=== PATIENT | female | born 1970 | race Hispanic/Latino ===

== ENCOUNTER 2017-07-02 02:04 | Inpatient (IN) | payer MEDICAID ==
[2017-07-02] MEDS ORDERED: Sodium Chloride 0.9% 1,000 ML IV STA (03:19)
--- NOTE | 2017-07-02 03:26 | ED PDOC ---
HPI: Abdomen Time Seen by Provider: 07/02/17 02:47 Chief Complaint (Nursing): Abdominal Pain Chief Complaint (Provider): Abdominal Pain History Per: Patient History/Exam Limitations: no limitations Onset/Duration Of Symptoms: Days (x 2) Current Symptoms Are (Timing): Still Present Additional Complaint(s): Shabnam is a 46 y/o female with a history of anxiety and depression who presents to the ED complaining of left-sided abdominal pain that started about 36 hours ago and got progressively worse. Patient states she now has an associated fever that was 100.6 at home for which she has not taken any medications. She also complains of decreased appetite, chills, and nausea, but denies vomiting. She has had loose stool but that is not abnormal for her. PMD: Clinic Past Medical History Reviewed: Historical Data, Nursing Documentation, Vital Signs Vital Signs: Last Vital Signs Temp 100.3 F H 07/02/17 05:15 Pulse 97 H 07/02/17 05:15 Resp 16 07/02/17 05:15 BP 114/66 07/02/17 05:15 Pulse Ox 98 07/02/17 06:03 - Medical History PMH: Anxiety, Depression Denies: Chronic Kidney Disease - Surgical History Other surgeries: removal of fallopian tubes and ovaries - Family History Family History: States: Unknown Family Hx - Social History Current smoker - smoking cessation education provided: No Alcohol: None Drugs: Denies - Home Medications Home Medications: Ambulatory Orders Medication Instructions Recorded Escitalopram [Lexapro] 20 mg PO DAILY 07/02/17 Estrogen,Con/M-Progest Acet 0.3 - 1.5 mg PO ONCE 07/02/17 [Prempro 0.3 mg-1.5 mg Tablet] - Allergies Allergies/Adverse Reactions: Allergies Allergy/AdvReac Type Severity Reaction Status Date / Time clindamycin Allergy RASH Verified 05/09/16 18:11 vancomycin Allergy RASH Verified 05/09/16 18:11 Review of Systems ROS Statement: Except As Marked, All Systems Reviewed And Found Negative Constitutional: Positive for: Fever, Chills, Other (decreased appetite) Gastrointestinal: Positive for: Nausea, Abdominal Pain (left-sided). Negative for: Vomiting Physical Exam - Reviewed Nursing Documentation Reviewed: Yes Vital Signs Reviewed: Yes - Physical Exam Appears: Positive for: Well, Non-toxic, No Acute Distress Cardiovascular/Chest: Positive for: Regular Rate, Rhythm. Negative for: Murmur Respiratory: Positive for: Normal Breath Sounds. Negative for: Respiratory Distress Gastrointestinal/Abdominal: Positive for: Soft, Tenderness (marked LLQ), Guarding Extremity: Positive for: Normal ROM. Negative for: Pedal Edema, Deformity Neurologic/Psych: Positive for: Alert, Oriented. Negative for: Motor/Sensory Deficits - Laboratory Results Result Diagrams: 07/02/17 04:00 07/02/17 04:00 - ECG O2 Sat by Pulse Oximetry: 98 (RA) Medical Decision Making Medical Decision Making: Time: 3:12 Initial Impression: 46 y/o female with LLQ tenderness Initial Plan: --CT Abdomen & Pelvis IV Contrast --CMP --Lactic Acid --Lipase --CBC --Blood Culture --Urinalysis --Toradol Time: 5:45 CT ABDOMEN & PELVIS FINDINGS: LOWER THORAX: No infiltrate seen in the lung bases. ABDOMEN: LIVER: No acute abnormality of the liver identified. GALLBLADDER AND BILE DUCTS: No CT evidence of acute cholecystitis. No evidence of significant biliary ductal dilatation. PANCREAS: No CT evidence of acute pancreatitis. SPLEEN: No acute abnormality of the spleen identified. ADRENALS: No acute abnormality of the adrenal glands identified. KIDNEYS AND URETERS: No acute abnormality of the kidneys identified. No evidence of significant hydrouereteronephrosis. STOMACH AND BOWEL: Moderate fat stranding and infiltration, consistent with inflammatory change, is seen in the fat adjacent to the distal descending colon. Segmental wall thickening of the colon is also noted in this same area. There is thickening of the nearby left retroperitoneal fascia The inflammatory changes surround a colonic diverticulum, image 117/series 3. Findings are most compatible with acute diverticulitis. No evidence of significant focal fluid collection or abscess. No definite nearby extraluminal air seen to suggest perforation. Otherwise, no significant abnormality of the bowel is identified. No evidence of bowel obstruction. APPENDIX: Appendix is seen, and is within normal limits in appearance. PELVIS: BLADDER: No acute abnormality of the bladder identified. REPRODUCTIVE:No acute abnormality of the reproductive organs is seen. No acute abnormality of the uterus identified. No evidence of large adnexal masses. ABDOMEN and PELVIS: INTRAPERITONEAL SPACE: Tiny amount of pelvic free fluid. No evidence of free air. BONES/JOINTS: Bony structures appear demineralized. No acute fractures or other acute bony abnormality noted. SOFT TISSUES: No acute abnormality of the visualized soft tissues is seen. VASCULATURE: No evidence of abdominal aortic aneurysm. No evidence of periaortic hemorrhage. LYMPH NODES: No evidence of diffuse lymphadenopathy. IMPRESSION: - Findings compatible with acute diverticulitis of the distal descending colon. No evidence of abscess formation or perforation. - See above for remaining findings. --Provider spoke to Dr. Moreno, family practice resident cardiopulmonary supervisor, who will admit patient for acute diverticulitis. --IV Cipro and Flagyl ordered. Clinical Impression: Acute Diverticulitis Scribe Attestation: Documented by Kenroy Hilton, acting as a scribe for Kel Barrera MD Provider Scribe Attestation: All medical record entries made by the Scribe were at my direction and personally dictated by me. I have reviewed the chart and agree that the record accurately reflects my personal performance of the history, physical exam, medical decision making, and the department course for this patient. I have also personally directed, reviewed, and agree with the discharge instructions and disposition. Disposition - Clinical Impression Clinical Impression: Acute diverticulitis - Patient ED Disposition Is Patient to be Admitted: Yes Discussed With DrCinthya: Lester Moreno Doctor Will See Patient In The: ED Counseled Patient/Family Regarding: Studies Performed, Diagnosis - Disposition Disposition Time: 06:00 Condition: FAIR - Pt Status Changed To: Hospital Disposition Of: Inpatient - Admit Certification Admit to Inpatient:: After my assessment, the patient will require hospitalization for at least two midnights. This is because of the severity of symptoms shown, intensity of services needed, and/or the medical risk in this patient being treated as an outpatient.
[2017-07-02 03:51] LABS: SQUAMOUS EPITHIAL 7 /hpf (0-5); URINE BACTERIA MOD (<OCC); URINE BILIRUBIN NEGATIVE (NEGATIVE); URINE BLOOD NEGATIVE (NEGATIVE); URINE CLARITY CLOUDY (Clear); URINE COLOR YELLOW (YELLOW); URINE GLUCOSE (UA) NEG (Normal); URINE LEUKOCYTE ESTERASE NEG Leu/uL (Negative); URINE NITRATE NEGATIVE (NEGATIVE); URINE PROTEIN 30 mg/dL (NEGATIVE); URINE UROBILINOGEN 0.2-1.0 mg/dL (0.2-1.0)
[2017-07-02 04:14] LABS: BASO # 0.1 K/uL (0.0-0.2); BASO % 0.4 % (0.0-2.0); EOS # 0.1 K/uL (0.0-0.7); EOS % 0.6 % (0.0-4.0); HEMOGLOBIN 12.2 g/dL (12.0-16.0); LYMPH # 1.8 K/uL (1.0-4.3); LYMPH % 13.6 % (20.0-40.0); MEAN CELL VOLUME 92.1 fl (81.0-99.0); MEAN CORPUSCULAR HEMOGLOBIN 31.6 pg (27.0-31.0); MEAN CORPUSCULAR HGB CONC 34.3 g/dL (33.0-37.0); MEAN PLATELET VOLUME 7.5 fl (7.2-11.7); MONO # 0.9 K/uL (0.0-0.8); MONO % 6.7 % (0.0-10.0); NEUT # 10.3 K/uL (1.8-7.0); NEUT % 78.7 % (50.0-75.0); RBC 3.87 Mil/uL (3.80-5.20); WHITE BLOOD COUNT 13.2 K/uL (4.8-10.8)
[2017-07-02 04:23] LABS: ALB/GLOB RATIO 1.2 (1.0-2.1); ALBUMIN 4.1 g/dL (3.5-5.0); ALT/SGPT 26 U/L (9-52); AST/SGOT 20 U/L (14-36); BLOOD UREA NITROGEN 13 mg/dl (7-17); CALCIUM 9.1 mg/dL (8.4-10.2); GFR AFRICAN-AMERICAN > 60; GFR NON-AFRICAN AMERICAN > 60; LIPASE 115 U/L (23-300)
[2017-07-02] MEDS ORDERED: Iohexol 300 100 ML IJ ONE (04:29)
[2017-07-02] MEDS ORDERED: Sodium Chloride 0.9% 100 ML ONE (04:29)
--- NOTE | 2017-07-02 05:45 | CT ---
EXAM: CT Abdomen and Pelvis With Intravenous Contrast EXAM DATE/TIME: 07/02/2017 3:12 AM CLINICAL HISTORY: 46 years old, female; Pain; Abdominal pain; Localized; Left lower quadrant (llq); Additional info: Llq pain TECHNIQUE: Axial computed tomography images of the abdomen and pelvis with intravenous contrast. All CT scans at this facility use one or more dose reduction techniques, viz.: automated exposure control; ma/kV adjustment per patient size (including targeted exams where dose is matched to indication; i.e. head); or iterative reconstruction technique. Coronal and sagittal reformatted images were created and reviewed. CONTRAST: 95 mL of omnipaque administered intravenously. COMPARISON: No relevant prior studies available. FINDINGS: LOWER THORAX: No infiltrate seen in the lung bases. ABDOMEN: LIVER: No acute abnormality of the liver identified. GALLBLADDER AND BILE DUCTS: No CT evidence of acute cholecystitis. No evidence of significant biliary ductal dilatation. PANCREAS: No CT evidence of acute pancreatitis. SPLEEN: No acute abnormality of the spleen identified. ADRENALS: No acute abnormality of the adrenal glands identified. KIDNEYS AND URETERS: No acute abnormality of the kidneys identified. No evidence of significant hydrouereteronephrosis. STOMACH AND BOWEL: Moderate fat stranding and infiltration, consistent with inflammatory change, is seen in the fat adjacent to the distal descending colon. Segmental wall thickening of the colon is also noted in this same area. There is thickening of the nearby left retroperitoneal fascia The inflammatory changes surround a colonic diverticulum, image 117/series 3. Findings are most compatible with acute diverticulitis. No evidence of significant focal fluid collection or abscess. No definite nearby extraluminal air seen to suggest perforation. Otherwise, no significant abnormality of the bowel is identified. No evidence of bowel obstruction. APPENDIX: Appendix is seen, and is within normal limits in appearance. PELVIS: BLADDER: No acute abnormality of the bladder identified. REPRODUCTIVE:No acute abnormality of the reproductive organs is seen. No acute abnormality of the uterus identified. No evidence of large adnexal masses. ABDOMEN and PELVIS: INTRAPERITONEAL SPACE: Tiny amount of pelvic free fluid. No evidence of free air. BONES/JOINTS: Bony structures appear demineralized. No acute fractures or other acute bony abnormality noted. SOFT TISSUES: No acute abnormality of the visualized soft tissues is seen. VASCULATURE: No evidence of abdominal aortic aneurysm. No evidence of periaortic hemorrhage. LYMPH NODES: No evidence of diffuse lymphadenopathy. IMPRESSION: - Findings compatible with acute diverticulitis of the distal descending colon. No evidence of abscess formation or perforation. - See above for remaining findings.
[2017-07-02] MEDS ORDERED: metroNIDAZOLE 500mg/100ml NS 100 ML IVPB STA (05:53)
[2017-07-02] MEDS ORDERED: Ciprofloxacin 400mg/200ml D5W 400 MG/200 ML BAG IV STA (05:53)
[2017-07-02] MEDS ORDERED: metroNIDAZOLE 500mg/100ml NS 100 ML IVPB ONE (06:02)
--- NOTE | 2017-07-02 06:55 | CP.PCM.HP ---
History of Present Illness - History of Present Illness History of Present Illness: CC: abdominal pain HPI: The patient is a 46 y/o woman w/ pmh of anxiety and depression presents to the ED with abdominal pain. The patient reports pain on the left lower quadrant that started 2 days ago (06/30), occurred at rest, not related to meals , stabbing in nature, non-radiating, constant, worsened w/ movement, alleviated by laying down. The patient reports regular bowel movements; however did not have bowel movement for 2 days prior to pain. Patient reports soft, non-bloody bowel movement yesterday. The patient took motrin for headache but did not have relief for abdominal pain. Patient reports low grade fever of 100.6 F measured at home. The patient currently denies headache, dizziness, chest pain , SOB, nausea, vomiting, dysuria, diarrhea, hematochezia, or melena. PMD: [facility] (last saw Dr. Gaytan 04/11/2017) PMH: anxiety, depression allergies: clindamycin, vancomycin meds: escitalopram 20 mg PO daily, prempro 0.625-2.5 mg PO daily PSH: ear surgery @ 10 years old, bilateral salpingo-oophorectomy 2015 Fam: mother 77 y/o and father 80 y/o both healthy SOC: denies smoking, alcohol, and illegal drugs ROS: 12 points assessed and negative unless otherwise reported in HPI ED course: vitals: 100.3 F, 97 beats/min, 114/66 mm Hg, resp 16, O2 98% RA CBC: 13.2>12.2/35.7<362 CMP: 141/3.8, 103/24, 13/0.8, glucose 109, AST 20, ALT 26, alk phos 80 Lactic Acid: 1.3 Lipase: 115 Blood Culture: pending Urinalysis: cloudy, protein 30, trace ketones, negative blood, glucose, nitrate , bilirubin, and leukocyte esterase CT Abdomen & Pelvis IV Contrast: Findings compatible with acute diverticulitis of the distal descending colon. No evidence of abscess formation or perforation given Toradol 15 mg IV once given ciprofloxacin 400 mg IV given metronidazole 500 mg IV IVF NS 1L bolus Present on Admission - Present on Admission Any Indicators Present on Admission: No History of DVT/PE: No History of Uncontrolled Diabetes: No Urinary Catheter: No Decubitus Ulcer Present: No Review of Systems - Review of Systems All systems: reviewed and no additional remarkable complaints except - Constitutional Constitutional: As Per HPI, Fever. absent: Chills - EENT Eyes: absent: Change in Vision - Cardiovascular Cardiovascular: absent: Chest Pain, Leg Edema, Lightheadedness, Palpitations - Respiratory Respiratory: absent: Dyspnea - Gastrointestinal Gastrointestinal: As Per HPI, Abdominal Pain. absent: Diarrhea, Hematochezia, Melena, Nausea, Vomiting - Genitourinary Genitourinary: absent: Dysuria - Reproductive: Female Reproductive:Female: Menopausal - Menstruation Menstruation: Menopausal - Integumentary Integumentary: absent: Rash Past Patient History - Past Medical History & Family History Past Medical History?: Yes - Past Social History Alcohol: None Drugs: Denies - CARDIAC Hx Cardiac Disorders: No - PULMONARY Hx Respiratory Disorders: No - NEUROLOGICAL Hx Neurological Disorder: No - HEENT Hx HEENT Problems: Yes (Hx of dental caries, tooth infection) - RENAL Hx Chronic Kidney Disease: No - ENDOCRINE/METABOLIC Hx Endocrine Disorders: No - HEMATOLOGICAL/ONCOLOGICAL Hx Blood Disorders: No - INTEGUMENTARY Hx Dermatological Problems: No - MUSCULOSKELETAL/RHEUMATOLOGICAL Hx Musculoskeletal Disorders: No Hx Falls: No - GASTROINTESTINAL Hx Gastrointestinal Disorders: No - GENITOURINARY/GYNECOLOGICAL Hx Genitourinary Disorders: No - PSYCHIATRIC Hx Anxiety: Yes Hx Depression: Yes - SURGICAL HISTORY Hx Surgeries: Yes Other/Comment: Left ear surgery. tooth extraction - ANESTHESIA Hx Anesthesia: Yes Hx Anesthesia Reactions: No Hx Malignant Hyperthermia: No Meds Allergies/Adverse Reactions: Allergies Allergy/AdvReac Type Severity Reaction Status Date / Time clindamycin Allergy RASH Verified 05/09/16 18:11 vancomycin Allergy RASH Verified 05/09/16 18:11 Physical Exam - Constitutional Appears: Non-toxic, No Acute Distress - Head Exam Head Exam: ATRAUMATIC, NORMAL INSPECTION, NORMOCEPHALIC - Eye Exam Eye Exam: Normal appearance - ENT Exam ENT Exam: Mucous Membranes Moist - Neck Exam Neck exam: Positive for: Full Rom. Negative for: Tenderness - Respiratory Exam Respiratory Exam: Clear to Auscultation Bilateral, NORMAL BREATHING PATTERN. absent: Decreased Breath Sounds, Rales, Rhonchi, Wheezes, Respiratory Distress - Cardiovascular Exam Cardiovascular Exam: REGULAR RHYTHM, RRR. absent: Tachycardia - GI/Abdominal Exam GI & Abdominal Exam: Normal Bowel Sounds, Soft, Tenderness. absent: Distended, Rebound, Rigid Additional comments: LLQ tenderness on palpation, no rebound, negative Liao's sign - Extremities Exam Extremities exam: Positive for: normal inspection. Negative for: calf tenderness, pedal edema, tenderness - Back Exam Back exam: absent: CVA tenderness (L), CVA tenderness (R) - Neurological Exam Neurological exam: Alert, Oriented x3 - Skin Skin Exam: Dry, Intact, Normal Color, Warm Results - Vital Signs Recent Vital Signs: Last Vital Signs Temp 100.3 F H 07/02/17 05:15 Pulse 97 H 07/02/17 05:15 Resp 16 07/02/17 05:15 BP 114/66 07/02/17 05:15 Pulse Ox 98 07/02/17 06:03 - Labs Result Diagrams: 07/02/17 04:00 07/02/17 04:00 Labs: Laboratory Results - last 24 hr 07/02/17 07/02/17 07/02/17 03:13 04:00 04:00 WBC 13.2 H D RBC 3.87 Hgb 12.2 Hct 35.7 MCV 92.1 MCH 31.6 H MCHC 34.3 RDW 13.0 Plt Count 362 MPV 7.5 Neut % (Auto) 78.7 H Lymph % (Auto) 13.6 L [place] % (Auto) 6.7 Eos % (Auto) 0.6 Baso % (Auto) 0.4 Neut # (Auto) 10.3 H Lymph # (Auto) 1.8 [place] # (Auto) 0.9 H Eos # (Auto) 0.1 Baso # (Auto) 0.1 Sodium Potassium Chloride Carbon Dioxide Anion Gap BUN Creatinine Est GFR ( Amer) Est GFR (Non-Af Amer) Random Glucose Lactic Acid 1.3 Calcium Total Bilirubin AST ALT Alkaline Phosphatase Total Protein Albumin Globulin Albumin/Globulin Ratio Lipase Urine Color Yellow Urine Clarity Cloudy Urine pH 6.0 Ur Specific [place] 1.027 Urine Protein 30 Urine Glucose (UA) Neg Urine Ketones Trace Urine Blood Negative Urine Nitrate Negative Urine Bilirubin Negative Urine Urobilinogen 0.2-1.0 Ur Leukocyte Esterase Neg Urine RBC (Auto) 2 Urine Microscopic WBC 3 Ur Squamous Epith Cells 7 H Urine Bacteria Mod H 07/02/17 04:00 WBC RBC Hgb Hct MCV MCH MCHC RDW Plt Count MPV Neut % (Auto) Lymph % (Auto) [place] % (Auto) Eos % (Auto) Baso % (Auto) Neut # (Auto) Lymph # (Auto) [place] # (Auto) Eos # (Auto) Baso # (Auto) Sodium 141 Potassium 3.8 Chloride 103 Carbon Dioxide 24 Anion Gap 18 BUN 13 Creatinine 0.8 Est GFR ( Amer) > 60 Est GFR (Non-Af Amer) > 60 Random Glucose 109 H Lactic Acid Calcium 9.1 Total Bilirubin 0.4 AST 20 ALT 26 Alkaline Phosphatase 80 Total Protein 7.4 Albumin 4.1 Globulin 3.3 Albumin/Globulin Ratio 1.2 Lipase 115 Urine Color Urine Clarity Urine pH Ur Specific [place] Urine Protein Urine Glucose (UA) Urine Ketones Urine Blood Urine Nitrate Urine Bilirubin Urine Urobilinogen Ur Leukocyte Esterase Urine RBC (Auto) Urine Microscopic WBC Ur Squamous Epith Cells Urine Bacteria Assessment & Plan - Assessment and Plan (Free Text) Assessment: The patient is a 46 y/o woman w/ pmh of anxiety and depression presents to the ED with abdominal pain Plan: Acute diverticulitis - LLQ pain/tenderness - vitals: 100.3 F, 97 beats/min, 114/66 mm Hg, resp 16, O2 98% RA - CBC: 13.2>12.2/35.7<362 - CMP: 141/3.8, 103/24, 13/0.8, glucose 109, AST 20, ALT 26, alk phos 80 - Lactic Acid: 1.3 - Lipase: 115 - Blood Culture: pending - Urinalysis: cloudy, protein 30, trace ketones, negative blood, glucose, nitrate, bilirubin, and leukocyte esterase - CT Abdomen & Pelvis IV Contrast: Findings compatible with acute diverticulitis of the distal descending colon. No evidence of abscess formation or perforation - given Toradol 15 mg IV once - given ciprofloxacin 400 mg IV - given metronidazole 500 mg IV - IVF NS 1L bolus - admit to [facility] - NPO - IVF LR @ 120mL/hr - ciprofloxacin 400 mg IV Q12h - metronidazole 500 mg IV Q8h - monitor for acute changes Pain management - toradol 15 mg IV Q6h prn for moderate pain - morphine 2 mg IV Q4h prn for severe pain Prophylactic measures - DVT: lovenox 40 mg SC daily
[2017-07-02] MEDS ORDERED: Morphine 4 MG/ML VIAL IVP PRN (07:04)
[2017-07-02] MEDS: Lactated Ringer's 1,000 ML IV SCH ×3 (08:23→23:19)
[2017-07-02] MEDS ORDERED: Ciprofloxacin 400mg/200ml D5W 400 MG/200 ML BAG IVPB SCH ×2 (09:00→17:00)
[2017-07-02] MEDS ORDERED: metroNIDAZOLE 500mg/100ml NS 100 ML IVPB SCH (09:00)
[2017-07-02 09:02] VITALS: RESP 20
[2017-07-02] MEDS ORDERED: Influenza Vaccine 18yr & older 0.5 ML/45 MCG SYR IM ONE (09:14)
[2017-07-02] MEDS: Enoxaparin 40 mg Syringe SC SCH (09:16)
[2017-07-02] MEDS: metroNIDAZOLE 500mg/100ml NS 100 ML IVPB SCH ×3 (14:21→21:33)
[2017-07-02] MEDS ORDERED: CONJUGATED ESTROGENS PO SCH (17:45)
[2017-07-02] MEDS ORDERED: MEDROXYPROGESTERONE PO SCH (17:45)
[2017-07-02] MEDS: Ciprofloxacin 400mg/200ml D5W 400 MG/200 ML BAG IVPB SCH (17:54)
[2017-07-03] MEDS: Lactated Ringer's 1,000 ML IV SCH (05:46)
[2017-07-03] MEDS: Ciprofloxacin 400mg/200ml D5W 400 MG/200 ML BAG IVPB SCH (06:09)
[2017-07-03 06:43] LABS: BASO # 0.1 K/uL (0.0-0.2); BASO % 0.7 % (0.0-2.0); EOS # 0.1 K/uL (0.0-0.7); EOS % 1.7 % (0.0-4.0); HEMOGLOBIN 11.1 g/dL (12.0-16.0); LYMPH # 2.2 K/uL (1.0-4.3); LYMPH % 28.9 % (20.0-40.0); MEAN CELL VOLUME 94.1 fl (81.0-99.0); MEAN CORPUSCULAR HEMOGLOBIN 31.1 pg (27.0-31.0); MEAN CORPUSCULAR HGB CONC 33.1 g/dL (33.0-37.0); MEAN PLATELET VOLUME 7.4 fl (7.2-11.7); MONO # 0.6 K/uL (0.0-0.8); MONO % 7.9 % (0.0-10.0); NEUT # 4.6 K/uL (1.8-7.0); NEUT % 60.8 % (50.0-75.0); RBC 3.57 Mil/uL (3.80-5.20); WHITE BLOOD COUNT 7.5 K/uL (4.8-10.8)
[2017-07-03 07:04] LABS: BLOOD UREA NITROGEN 9 mg/dl (7-17); CALCIUM 9.1 mg/dL (8.4-10.2); GFR AFRICAN-AMERICAN > 60; GFR NON-AFRICAN AMERICAN > 60
[2017-07-03] MEDS: metroNIDAZOLE 500mg/100ml NS 100 ML IVPB SCH (07:47)
[2017-07-03 07:52] VITALS: BP 107/73; PULSE 78; TEMP 98.6; O2SAT 98
--- NOTE | 2017-07-03 10:13 | CP.PCM.PN ---
Subjective - Date & Time of Evaluation Date of Evaluation: 07/03/17 Time of Evaluation: 07:40 Objective - Vital Signs/Intake and Output Vital Signs (last 24 hours): Temp Pulse Resp BP Pulse Ox 98.6 F 78 20 107/73 98 07/03/17 07:52 07/03/17 07:52 07/03/17 07:52 07/03/17 07:52 07/03/17 07:52 - Medications Medications: Current Medications Enoxaparin Sodium (Lovenox) 40 mg SC DAILY [facility] PRN Reason: Protocol Last Admin: 07/02/17 09:16 Dose: Not Given Escitalopram Oxalate (Lexapro) 20 mg PO DAILY [facility] Home Med (Estrogen,Con/M-Progest Acet [Prempro 0.3 Mg-1.5 Mg Tablet]) 0.3 - 1.5 mg PO ONCE [facility] Lactated Ringer's (Lactated Ringer's) 1,000 mls @ 120 mls/hr IV .Q8H20M [facility] Last Admin: 07/03/17 05:46 Dose: Not Given Ciprofloxacin (Cipro 400mg/200ml Dsw) 400 mg in 200 mls @ 200 mls/hr IVPB Q12@ 0600,1800 [facility] PRN Reason: Protocol Last Admin: 07/03/17 06:09 Dose: 200 mls/hr Metronidazole (Flagyl 500mg/100ml Ns) 100 mls @ 100 mls/hr IVPB Q8@0600,1400, 2200 [facility] PRN Reason: Protocol Last Admin: 07/03/17 07:47 Dose: 100 mls/hr Ketorolac Tromethamine (Toradol) 15 mg IVP Q6 PRN PRN Reason: Pain, moderate (4-7) Last Admin: 07/02/17 14:21 Dose: 15 mg Morphine Sulfate (Morphine) 2 mg IVP Q4 PRN PRN Reason: Pain, severe (8-10) Ondansetron HCl (Zofran Inj) 4 mg IVP Q6 PRN PRN Reason: Nausea/Vomiting - Labs Labs: 07/03/17 06:00 07/03/17 06:00
[2017-07-03] MEDS: Enoxaparin 40 mg Syringe SC SCH ×2 (11:04→11:07)
--- NOTE | 2017-07-03 13:25 | CP.PCM.DIS ---
Provider - Provider Date of Admission: 07/02/17 05:53 Attending physician: Julia Wilcox MD Time Spent in preparation of Discharge (in minutes): 15 Diagnosis - Discharge Diagnosis (1) Acute diverticulitis Status: Acute Hospital Course - Lab Results Lab Results: Micro Results 07/02/17 04:30 Blood Blood Culture - Preliminary NO GROWTH AFTER 24 HOURS 07/02/17 04:01 Blood Blood Culture - Preliminary NO GROWTH AFTER 24 HOURS Most Recent Lab Values WBC 7.5 K/uL (4.8-10.8) 07/03/17 06:00 RBC 3.57 Mil/uL (3.80-5.20) L 07/03/17 06:00 Hgb 11.1 g/dL (12.0-16.0) L 07/03/17 06:00 Hct 33.6 % (34.0-47.0) L 07/03/17 06:00 MCV 94.1 fl (81.0-99.0) D 07/03/17 06:00 MCH 31.1 pg (27.0-31.0) H 07/03/17 06:00 MCHC 33.1 g/dL (33.0-37.0) 07/03/17 06:00 RDW 13.0 % (11.5-14.5) 07/03/17 06:00 Plt Count 337 K/uL (130-400) 07/03/17 06:00 MPV 7.4 fl (7.2-11.7) 07/03/17 06:00 Neut % (Auto) 60.8 % (50.0-75.0) 07/03/17 06:00 Lymph % (Auto) 28.9 % (20.0-40.0) 07/03/17 06:00 [place] % (Auto) 7.9 % (0.0-10.0) 07/03/17 06:00 Eos % (Auto) 1.7 % (0.0-4.0) 07/03/17 06:00 Baso % (Auto) 0.7 % (0.0-2.0) 07/03/17 06:00 Neut # (Auto) 4.6 K/uL (1.8-7.0) 07/03/17 06:00 Lymph # (Auto) 2.2 K/uL (1.0-4.3) 07/03/17 06:00 [place] # (Auto) 0.6 K/uL (0.0-0.8) 07/03/17 06:00 Eos # (Auto) 0.1 K/uL (0.0-0.7) 07/03/17 06:00 Baso # (Auto) 0.1 K/uL (0.0-0.2) 07/03/17 06:00 Sodium 145 mmol/l (132-148) 07/03/17 06:00 Potassium 4.1 MMOL/L (3.6-5.0) 07/03/17 06:00 Chloride 104 mmol/L (98-107) 07/03/17 06:00 Carbon Dioxide 27 mmol/L (22-30) 07/03/17 06:00 Anion Gap 18 (10-20) 07/03/17 06:00 BUN 9 mg/dl (7-17) 07/03/17 06:00 Creatinine 0.8 mg/dl (0.7-1.2) 07/03/17 06:00 Est GFR ( Amer) > 60 07/03/17 06:00 Est GFR (Non-Af Amer) > 60 07/03/17 06:00 Random Glucose 89 mg/dL (65-105) 07/03/17 06:00 Lactic Acid 1.3 MMOL/L (0.7-2.1) 07/02/17 04:00 Calcium 9.1 mg/dL (8.4-10.2) 07/03/17 06:00 Total Bilirubin 0.4 mg/dl (0.2-1.3) 07/02/17 04:00 AST 20 U/L (14-36) 07/02/17 04:00 ALT 26 U/L (9-52) 07/02/17 04:00 Alkaline Phosphatase 80 U/L (38-126) 07/02/17 04:00 Total Protein 7.4 G/DL (6.3-8.2) 07/02/17 04:00 Albumin 4.1 g/dL (3.5-5.0) 07/02/17 04:00 Globulin 3.3 gm/dL (2.2-3.9) 07/02/17 04:00 Albumin/Globulin Ratio 1.2 (1.0-2.1) 07/02/17 04:00 Lipase 115 U/L (23-300) 07/02/17 04:00 Urine Color Yellow (YELLOW) 07/02/17 03:13 Urine Clarity Cloudy (Clear) 07/02/17 03:13 Urine pH 6.0 (5.0-8.0) 07/02/17 03:13 Ur Specific [place] 1.027 (1.003-1.030) 07/02/17 03:13 Urine Protein 30 mg/dL (NEGATIVE) 07/02/17 03:13 Urine Glucose (UA) Neg mg/dL (Normal) 07/02/17 03:13 Urine Ketones Trace mg/dL (NEGATIVE) 07/02/17 03:13 Urine Blood Negative (NEGATIVE) 07/02/17 03:13 Urine Nitrate Negative (NEGATIVE) 07/02/17 03:13 Urine Bilirubin Negative (NEGATIVE) 07/02/17 03:13 Urine Urobilinogen 0.2-1.0 mg/dL (0.2-1.0) 07/02/17 03:13 Ur Leukocyte Esterase Neg [place]/uL (Negative) 07/02/17 03:13 Urine RBC (Auto) 2 /hpf (0-3) 07/02/17 03:13 Urine Microscopic WBC 3 /hpf (0-5) 07/02/17 03:13 Ur Squamous Epith Cells 7 /hpf (0-5) H 07/02/17 03:13 Urine Bacteria Mod (<OCC) H 07/02/17 03:13 - Hospital Course Hospital Course: The patient is a 46 y/o woman w/ pmh of anxiety and depression presents to the ED with abdominal pain. The patient on admission had low grade fever 100.3 F, elevated WBC, CMP WNL, lactic acid 1.3, lipase 115, and CT abdomen/pelvis showed acute diverticulitis. The patient was placed NPO, given maintenance IVF , and started on IV antibiotics ciprofloxacin 400 mg Q12h and metronidazole 500 mg Q8h. The patient reported progressive improvement and tolerated advancing diet. The patient denies nausea, vomiting, and diarrhea. The patient has been seen, examined, and deemed medically fit for discharge home. The patient will be discharged w/ ciprofloxacin 500 mg PO Q12h for 7 days and metronidazole 500 mg PO Q8h for 7 days. The patient will follow up w/ Dr. Gaytan at the [facility] on 07/12/2017 @ 15:20. Discharge Exam - Head Exam Head Exam: ATRAUMATIC, NORMAL INSPECTION, NORMOCEPHALIC - Eye Exam Eye Exam: Normal appearance - ENT Exam ENT Exam: Mucous Membranes Moist - Neck Exam Neck exam: Full Rom - Respiratory Exam Respiratory Exam: Clear to PA & Lateral, NORMAL BREATHING PATTERN, UNREMARKABLE. absent: Decreased Breath Sounds, Rales, Rhonchi, Wheezes, Respiratory Distress - Cardiovascular Exam Cardiovascular Exam: REGULAR RHYTHM. absent: Tachycardia - GI/Abdominal Exam GI & Abdominal Exam: Normal Bowel Sounds, Soft. absent: Distended, Tenderness - Extremities Exam Extremities exam: normal inspection - Neurological Exam Neurological exam: Alert, Oriented x3 - Skin Skin Exam: Dry, Intact, Normal Color, Warm Discharge Plan - Discharge Medications Prescriptions: Ciprofloxacin [Cipro] 500 mg PO Q12 7 Days #14 tab Metronidazole 500 mg PO Q8 7 Days #21 tablet - Follow Up Plan Condition: FAIR Disposition: HOME/ ROUTINE Instructions: Diverticulitis, Diverticulitis (DC), Diverticulitis (DC) Referrals: [facility] [Outside]
== END 2017-07-03 16:00 | disposition home or self-care (01) | DRG 183 ==
LOC: H.ER 02:04 → H.ERHOLD 05:53 → H.MEDSURG1 08:30
PROVIDERS: ADMIT Family Medicine Geriatric Medicine; ATTEND Family Medicine Geriatric Medicine
PROC: 3E0234Z Introduction of Serum, Toxoid and Vaccine into Muscle, Percutaneous Approach (ICD-10-PCS; principal; 2017-07-02)
DX: K57.32 Diverticulitis of large intestine without perforation or abscess without bleeding (principal); F32.9 Major depressive disorder, single episode, unspecified; F41.9 Anxiety disorder, unspecified; Z88.1 Allergy status to other antibiotic agents; Z23 Encounter for immunization

== ENCOUNTER 2017-09-14 16:03 | Emergency (ER) | payer MEDICAID ==
[2017-09-14 16:09] VITALS: RESP 16
--- NOTE | 2017-09-14 17:12 | ED PDOC ---
HPI: General Adult Time Seen by Provider: 09/14/17 16:20 Chief Complaint (Nursing): ENT Problem Chief Complaint (Provider): Sore Throat History Per: Patient History/Exam Limitations: no limitations Onset/Duration Of Symptoms: Days (x1) Current Symptoms Are (Timing): Still Present Additional Complaint(s): 47 y/o female with no significant pmhx, who presents to the ED complaining of a sore throat x1 day. Patient states she woke up with the sore throat, and says it worsened during the day. She is also reporting feeling tired and weak. She says she is concerned about strep throat. Patient reports taking an NSAID 2 hours ago. PMD: Lizet Herrera Past Medical History Reviewed: Historical Data, Nursing Documentation, Vital Signs Vital Signs: Last Vital Signs Temp 99 F 09/14/17 16:06 Pulse 89 09/14/17 16:06 Resp 16 09/14/17 16:06 BP 105/61 09/14/17 16:06 Pulse Ox 96 09/14/17 17:12 - Medical History PMH: Anxiety, Depression Denies: Chronic Kidney Disease - Family History Family History: States: Unknown Family Hx - Home Medications Home Medications: Ambulatory Orders Medication Instructions Recorded Escitalopram [Lexapro] 20 mg PO DAILY 07/02/17 Estrogen,Con/M-Progest Acet 0.3 - 1.5 mg PO ONCE 07/02/17 [Prempro 0.3 mg-1.5 mg Tablet] Ciprofloxacin [Cipro] 500 mg PO Q12 7 Days #14 tab 07/03/17 Metronidazole 500 mg PO Q8 7 Days #21 tablet 07/03/17 - Allergies Allergies/Adverse Reactions: Allergies Allergy/AdvReac Type Severity Reaction Status Date / Time clindamycin Allergy RASH Verified 09/14/17 16:06 vancomycin Allergy RASH Verified 09/14/17 16:06 Review of Systems ROS Statement: Except As Marked, All Systems Reviewed And Found Negative ENT: Positive for: Throat Pain Physical Exam - Reviewed Nursing Documentation Reviewed: Yes Vital Signs Reviewed: Yes - Physical Exam Appears: Positive for: Non-toxic, No Acute Distress Head Exam: Positive for: ATRAUMATIC, NORMAL INSPECTION, NORMOCEPHALIC Skin: Positive for: Normal Color, Warm, Dry Eye Exam: Positive for: Normal appearance ENT: Positive for: Normal ENT Inspection Neck: Positive for: Normal, Painless ROM Cardiovascular/Chest: Positive for: Regular Rate, Rhythm. Negative for: Murmur Respiratory: Positive for: Normal Breath Sounds. Negative for: Respiratory Distress Neurologic/Psych: Positive for: Alert, Oriented - ECG O2 Sat by Pulse Oximetry: 96 (RA) Pulse Ox Interpretation: Normal Medical Decision Making Medical Decision Makin:44 Plan: --Rapid strep Strep(-) Scribe Attestation: Documented by Guy Choudhary, acting as a scribe for Natasha Gomez PA-C. Provider Scribe Attestation: All medical record entries made by the Scribe were at my direction and personally dictated by me. I have reviewed the chart and agree that the record accurately reflects my personal performance of the history, physical exam, medical decision making, and the department course for this patient. I have also personally directed, reviewed, and agree with the discharge instructions and disposition. Disposition - Clinical Impression Clinical Impression: Viral pharyngitis - Patient ED Disposition Is Patient to be Admitted: No Counseled Patient/Family Regarding: Diagnosis, Need For Followup, Rx Given - Disposition Disposition: Routine/Home Disposition Time: 17:41 Condition: STABLE Instructions: Viral Pharyngitis Forms: Stop Being Watched (Luxembourgish)
[2017-09-14 17:52] VITALS: BP 114/72; PULSE 73; TEMP 98.6; O2SAT 99
== END 2017-09-14 17:52 | disposition home or self-care (01) ==
LOC: H.ER 16:03
DX: J02.9 Acute pharyngitis, unspecified (principal); F32.9 Major depressive disorder, single episode, unspecified; F41.9 Anxiety disorder, unspecified

== ENCOUNTER 2018-03-05 17:11 | Emergency (ER) | payer MEDICAID ==
--- NOTE | 2018-03-05 19:13 | ED PDOC ---
HPI: Trauma/Fall - HPI Time Seen by Provider: 03/05/18 18:18 Chief Complaint (Nursing): Lower Extremity Problem/Injury Chief Complaint (Provider): Back and Knee pain History Per: Patient History/Exam Limitations: no limitations Onset/Duration Of Symptoms: Days (x4) Additional Complaint(s): 47 year old female presents to the ED for evaluation of left knee pain and lower back pain after falling down 3-4 stairs on Monday. Patient reports sharp pain to her back that has been intermittent and worsens with movement and direct pressure. Patient states she last took ibuprofen 800mg at 10:00am today. She also notes right knee discomfort, described as pressure like throbbing. Patient notes initially she had swelling and bruising of the knee but reports that it has resolved. No prior knee injury/surgery reported. LMP April 2016. Denies saddle anesthesia, weakness, numbness, recent fever, incontinence, urinary symptoms, LOC, or head injury. PMD: Efe Davis / Magdalena REYES Past Medical History Reviewed: Historical Data, Nursing Documentation, Vital Signs Vital Signs: Last Vital Signs Temp 99.4 F 03/05/18 17:23 Pulse 100 H 03/05/18 17:23 Resp 18 03/05/18 17:23 BP 127/77 03/05/18 17:23 Pulse Ox 100 03/05/18 17:23 - Medical History PMH: Anxiety, Depression - Surgical History Other surgeries: Ovaries and fallopian tube removed, ear procedure for cyst removal - Family History Family History: States: Unknown Family Hx - Home Medications Home Medications: Ambulatory Orders Medication Instructions Recorded Estrogen,Con/M-Progest Acet 0.3 - 1.5 mg PO ONCE 07/02/17 [Prempro 0.3 mg-1.5 mg Tablet] RX: Escitalopram [Lexapro] 20 mg PO DAILY 07/02/17 RX: Ciprofloxacin [Cipro] 500 mg PO Q12 7 Days #14 tab 07/03/17 RX: Metronidazole 500 mg PO Q8 7 Days #21 tablet 07/03/17 Acetaminophen [Acetaminophen 8 650 mg PO Q8 PRN #21 tablet.er 03/05/18 Hour] Meloxicam [Mobic] 15 mg PO DAILY #10 tab 03/05/18 - Allergies Allergies/Adverse Reactions: Allergies Allergy/AdvReac Type Severity Reaction Status Date / Time clindamycin Allergy RASH Verified 09/14/17 16:06 vancomycin Allergy RASH Verified 09/14/17 16:06 Review of Systems ROS Statement: Except As Marked, All Systems Reviewed And Found Negative Constitutional: Negative for: Fever Genitourinary Female: Negative for: Dysuria, Incontinence, Hematuria Musculoskeletal: Positive for: Back Pain, Other (Knee pain; no head injury) Neurological: Negative for: Weakness, Numbness, Other (LOC) Physical Exam - Reviewed Nursing Documentation Reviewed: Yes Vital Signs Reviewed: Yes - Physical Exam Comments: GENERAL APPEARANCE: Patient is awake, alert, oriented x 3, in no acute distress. Resting comfortably. SKIN: Warm, dry; (-) cyanosis. NECK: Supple, FROM CHEST AND RESPIRATORY: (-) rales, (-) rhonchi, (-) wheezes; breath sounds equal bilaterally. Respirations even and nonlabored, speaking in full sentences. HEART AND CARDIOVASCULAR: (-) irregularity ABDOMEN AND GI: Soft; (-) tenderness; (-) palpable mass (-) guarding (-) distention. BACK: (+) bilateral paralumbar and midline lumbar tenderness, (-) deformity. (+) right sided straight leg raise @ 10 degrees. EXTREMITIES: Right knee: ROM intact with pain on flexion, (+) tenderness to the medial aspect of right knee, (-) effusion, (-) ecchymosis, (-) erythema, (-) warmth (-) instability on valgus or varus stress (-) anterior and posterior drawer sign. Sensation and capillary refill intact. (-) calf tenderness (+) distal pulses NEURO AND PSYCH: Mental status as above. Limping in the ED. Speech: clear. (-) facial asymmetry (-) focal deficit (-) aphasia. - Laboratory Results Urine POC: Negative - ECG O2 Sat by Pulse Oximetry: 100 (RA) Pulse Ox Interpretation: Normal Medical Decision Making Medical Decision Making: Initial Impression: Acute knee and back pain s/p fall; r/o fracture Initial Plan: --Lumbar spine CT --ED urine --Right knee X-ray --Toradol 30mg IM --Tylenol 650mg PO Upreg: negative 2039 Knee XR: (-) fracture Patient notified official radiology reading is still pending and will be available within 24 hours. Patient will be notified of any discrepancies via phone. 21:14 CT Lumbar spine FINDINGS: ALIGNMENT: No fracture subluxation is seen. DISCS/DEGENERATIVE CHANGES: T12/L1: No significant central canal or neural foraminal stenosis. L1/L2: No significant central canal or neural foraminal stenosis. L2/L3: No significant central canal or neural foraminal stenosis. L3/4: No significant central canal or neural foraminal stenosis. L4/5: No significant central canal or neural foraminal stenosis. L5/S1: No significant central canal or neural foraminal stenosis. BONES: Mild diffuse degenerative endplate changes are noted. SOFT TISSUES: The soft tissues are unremarkable. MISCELLANEOUS: No abnormal contrast enhancement. IMPRESSION: 1. No fracture subluxation is seen. 2. Mild diffuse degenerative endplate changes are noted. 2124 Repeat HR: 89 On re-evaluation, patient reports improvement of symptoms On exam, patient remains AAOx3, in no acute distress. Lungs clear to auscultation, cardiac RRR, repeat neuro exam shows no focal findings. Vitals stable. Patient offered crutches however declined. KELL encouraged. Lab/Diagnostic results d/w the patient in great detail. Diagnosis of acute knee and back pain s/p fall on stairs d/w the patient. Based on history, exam and diagnostic results, plan will be for outpatient follow up with PMD/ortho. Patient instructed to follow-up with pmd / referral provided / the clinic in 1- 2 days without fail. Advised to take medication as prescribed. Return to the emergency room at any time for any new or worsening symptoms. Patient states she fully agrees with and understands discharge instructions. States that she agrees with the plan and disposition. Verbalized and repeated discharge instructions and plan. I have given the patient opportunity to ask any additional questions. Scribe Attestation: Documented by Gadiel Dubose acting as a scribe for Ramila TRENT Provider Scribe Attestation: All medical record entries made by the Scribe were at my direction and personally dictated by me. I have reviewed the chart and agree that the record accurately reflects my personal performance of the history, physical exam, medical decision making, and the department course for this patient. I have also personally directed, reviewed, and agree with the discharge instructions and disposition. Disposition - Clinical Impression Clinical Impression: Knee pain, Back pain, Fall down stairs - Patient ED Disposition Is Patient to be Admitted: No Counseled Patient/Family Regarding: Studies Performed, Diagnosis, Need For Followup, Rx Given - Disposition Referrals: Kayla Nichols APN [Family Provider] - Vinicius Salvador III, MD [Staff Provider] - Disposition: Routine/Home Disposition Time: 21:25 Condition: IMPROVED Additional Instructions: The emergency medical care you received today was directed at your acute symptoms. If you were prescribed any medication, please fill it and take as directed. It may take several days for your symptoms to resolve. Return to the Emergency Department if your symptoms worsen, do not improve, or if you have any other problems. Please contact your doctor in 2 days for re-evaluation and follow up / or call one of the physicians/clinics you have been referred to that are listed on the Patient Visit Information form that is included in your discharge packet. Bring any paperwork you were given at discharge with you along with any medications you are taking to your follow up visit. Our treatment cannot replace ongoing medical care by a primary care provider (PCP) outside of the emergency department. Prescriptions: Acetaminophen [Acetaminophen 8 Hour] 650 mg PO Q8 PRN #21 tablet.er PRN Reason: Pain, Moderate (4-7) Meloxicam [Mobic] 15 mg PO DAILY #10 tab Instructions: Low Back Pain in Adults, Back Exercises, Knee Pain (DC) Forms: [employer] (Albanian) Print Language: BANGLADESHI - POA Present On Arrival: Falls Or Trauma
[2018-03-05 21:37] VITALS: BP 133/72; PULSE 89; RESP 15; TEMP 98.3
[2018-03-05 23:35] VITALS: O2SAT 100
--- NOTE | 2018-03-06 08:28 | RAD ---
Date of service: 03/05/2018 PROCEDURE: Right Knee Radiographs. HISTORY: joint pain s/p fall COMPARISON: None. FINDINGS: BONES: Bone alignment and mineralization are normal. There is no acute displaced fracture or bone destruction. JOINTS: The joint spaces are preserved. JOINT EFFUSION: None. OTHER FINDINGS: None. IMPRESSION: No acute fracture or dislocation.
--- NOTE | 2018-03-06 10:24 | CT ---
Date of service: 03/05/2018 PROCEDURE: CT Lumbar Spine without contrast HISTORY: midline tenderness s/p fall COMPARISON: None available. TECHNIQUE: Axial computed tomography images were obtained of the lumbar spine without the use of intravenous contrast. Coronal and sagittal reformatted images were created and reviewed. Radiation dose: Total exam DLP = 994.89 mGy-cm. This CT exam was performed using one or more of the following dose reduction techniques: Automated exposure control, adjustment of the mA and/or kV according to patient size, and/or use of iterative reconstruction technique. FINDINGS: VERTEBRAE: There is normal alignment of the lumbar vertebral bodies. There is normal lumbar lordosis. There is no acute fracture, spondylolysis or spondylolisthesis. Bone mineralization is normal. DISCS/SPINAL CANAL/NEURAL FORAMINA: Evaluation of the discs, conus medullaris and nerve roots of cauda equina is limited on noncontrast CT examination. Allowing for this, L1-2: No large disc herniation, neural foraminal or spinal canal stenosis. L2-3: No large disc herniation, neural foraminal or spinal canal stenosis. L3-4: Minimal posterior disc bulge without spinal canal stenosis or neural foraminal narrowing.. L4-5: Diffuse posterior disc bulge in conjunction with mild ligamentum flavum infolding result in mild spinal canal stenosis. Also noted is superimposed left far lateral disc protrusion. Mild bilateral facet arthropathy contributes to mild neural foraminal narrowing. L5-S1: Calcified disc and broad-based central disc protrusion in conjunction with mild ligamentum flavum infolding result in mild spinal canal stenosis. Mild bilateral facet arthropathy contribute to mild neural foraminal narrowing. PARASPINAL SOFT TISSUES: Unremarkable. OTHER FINDINGS: None. IMPRESSION: No acute fracture, spondylolysis or spondylolisthesis. Mild multilevel degenerative disc disease in the lower lumbar spine, worse at L4-5 with a broad-based central disc protrusion and mild spinal canal stenosis. Additional comments as described above. A preliminary report was provided by [facility].
== END 2018-03-05 21:37 | disposition home or self-care (01) ==
LOC: H.ER 17:11
DX: M25.562 Pain in left knee (principal); M54.5 Low back pain; W10.9XXA Fall (on) (from) unspecified stairs and steps, initial encounter; Z86.59 Personal history of other mental and behavioral disorders; M48.061 Spinal stenosis, lumbar region without neurogenic claudication; M51.36 Other intervertebral disc degeneration, lumbar region
CPT/HCPCS: 72131; 73562; 81025; 96372; 99283; J1885